=== PATIENT | female | born 1955 | race Caucasian/White ===

== ENCOUNTER 2018-08-22 12:17 | Day surgery (SDC) | payer OTHER ==
[2018-08-22] MEDS ORDERED: LIDOCAINE 1% (MPF) 30 ML INJ (13:02)
[2018-08-22] MEDS ORDERED: SEVOFLURANE 15 MIN (14:00)
[2018-08-22] MEDS ORDERED: ONDANSETRON 4 MG INJ (14:03)
[2018-08-22] MEDS ORDERED: METOCLOPRAMIDE 10 MG INJ (14:03)
[2018-08-22] MEDS ORDERED: PROPOFOL 20 ML (14:03)
[2018-08-22] MEDS ORDERED: MEPERIDINE 100 MG INJ (14:03)
[2018-08-22] MEDS ORDERED: LIDOCAINE 2% (SDV) 5 ML INJ (14:03)
[2018-08-22] MEDS ORDERED: ATROPINE 1 MG/10 ML SYRINGE (14:24)
[2018-08-22] MEDS ORDERED: EPHEDrine 25 MG/5 ML SYG (14:24)
[2018-08-22] MEDS ORDERED: CEFAZOLIN 1 GM INJ (14:24)
[2018-08-22] MEDS: BUPIVACAINE 0.5% (SDV) 30 ML INJ (15:08)
[2018-08-22] MEDS: POVIDONE IODINE 10% 28.4 GM OINT (15:08)
[2018-08-22] MEDS: LACTATED RINGER'S 1,000 ML IV (15:10)
[2018-08-22] MEDS: EPHEDrine 25 MG/5 ML SYG IV (15:23)
[2018-08-22] MEDS ORDERED: MIDAZOLAM 1 MG/ML 2 ML INJ IV (15:30)
[2018-08-22] MEDS ORDERED: DIPHENHYDRAMINE 50 MG INJ IV (15:30)
[2018-08-22] MEDS ORDERED: OXYCODONE/ACETAMINOPHEN (5/325) TAB PO ×2 (15:30)
[2018-08-22] MEDS ORDERED: MEPERIDINE 25 MG INJ IV (15:30)
[2018-08-22] MEDS ORDERED: LABETALOL HCL 20MG INJ IV (15:30)
[2018-08-22] MEDS ORDERED: hydrALAzine 20 MG INJ IV (15:30)
[2018-08-22] MEDS ORDERED: METOCLOPRAMIDE 10 MG INJ IV (15:30)
[2018-08-22] MEDS ORDERED: ONDANSETRON 4 MG INJ IV (15:30)
[2018-08-22] MEDS ORDERED: FENTAnyl 50 MCG/ML VIAL IV ×3 (15:30)
== END 2018-08-22 16:46 | disposition home or self-care (01) ==
LOC: SDS 12:17
DX: M20.5X2 Other deformities of toe(s) (acquired), left foot (principal); I10 Essential (primary) hypertension; E66.3 Overweight; Z68.28 Body mass index [BMI] 28.0-28.9, adult
CPT/HCPCS: 28122; 88304; 88311